=== PATIENT | male | born 1955 | race Two or more races ===

== ENCOUNTER 2019-05-20 07:49 | Day surgery (SDC) | payer BC, OTHER ==
[2019-05-17 10:28] VITALS: BMI 21.7
[2019-05-20 09:21] VITALS: TEMP 97.5
[2019-05-20 09:59] VITALS: BP 110/63; PULSE 75
--- NOTE | 2019-05-21 15:47 | PATH ---
Surgical Pathology Report Patient Name: DAVI PATRICK [facility]. Rec. #: [id number] /Age/Gender: 1955 (Age: 64) / M Account: [id number] Location: [facility]-ENDOSCOPY Taken: 05/20/2019 Received: 05/20/2019 Reported: 05/21/2019 Physicians: Karon Deleon M.D. Specimen(s) Received RECTAL POLYP Clinical History Colon cancer screening Postoperative diagnosis: Rectal polyp Final Diagnosis RECTAL POLYP, BIOPSY: HYPERPLASTIC POLYP. Electronically Signed Antoinette Hollins M.D. Gross Description Received in formalin, labeled "rectal polyp biopsy" are 3 caro, irregular portions of soft tissue ranging from 0.3-0.4 cm. in greatest dimension. The specimens are submitted in toto in one cassette. 05/20/201905/20/2019
== END 2019-05-20 10:20 | disposition home or self-care (01) ==
LOC: JASU-ENDO 07:49
PROVIDERS: ATTEND Internal Medicine Gastroenterology
PROC: 0DBP8ZX Excision of Rectum, Via Natural or Artificial Opening Endoscopic, Diagnostic (ICD-10-PCS; principal; 2019-05-20 09:45)
DX: Z12.11 Encounter for screening for malignant neoplasm of colon (principal); K62.1 Rectal polyp; K64.8 Other hemorrhoids; K63.89 Other specified diseases of intestine
CPT/HCPCS: 88305-TC